=== PATIENT | male | born 1990 | race Caucasian/White ===

== ENCOUNTER 2018-08-11 10:27 | Emergency (ER) | payer OTHER ==
[~2018-08-11] VITALS: Ht 170.2 cm; Wt 54.4 kg
[~2018-08-11 10:27] MED LIST: ABILIFY 5 MG TAB5 M1 PO; BUSPIRONE HCL10 MG PO; IBUPROFEN 600600 M1 PO; NEURONTIN 300300 M1 PO; NICOTINE TRANSD14 M1 TD; NOHOMEMEDICATIONS; PREDNISONE50 MG PO; RISPERDAL0.5 MG PO; TRAMADOL 50 MG50 MG PO; TYLENOL325 MG PO
[2018-08-11 16:49] VITALS: BP 131/74
== END 2018-08-11 16:45 | disposition home or self-care (01) ==
LOC: ER 10:27
DX: G35 Multiple sclerosis (principal); F84.5 Asperger's syndrome; F31.9 Bipolar disorder, unspecified; F17.210 Nicotine dependence, cigarettes, uncomplicated

== ENCOUNTER → 2018-08-12 | Outpatient (CLI) | payer OTHER ==
[2018-08-12 14:46] VITALS: BP 112/41
--- NOTE | 2018-08-12 16:20 | NUR ---
IN FOR SOLUMEDROL INFUSION FOR MS EXACERBATION. HAVING SYMPTOMS OF NUMBNESS, PAIN AND DROOPING ON RIGHT SIDE OF FACE. PATIENT STATED HAVING TROUBLE TALKING. PATIENT'S MOTHER ROSALES IN ATTENDANCE. ADMISSION HISTORY AND ASSESSMENT COMPLETED. IV PLACED AND INFUSED SOLUMEDROL OVER 1 HOUR. TOLERATED WELL WITHOUT INCIDENT. PATIENT REQUESTED IV BE TAKEN OUT AND BE RESTARTED TOMORROW WHEN HE COMES BACK FOR HIS LAST INFUSION. DISMISSED IN STABLE CONDITION.
== END ==
LOC: OPONC 06:13
DX: G35 Multiple sclerosis (principal)
CPT/HCPCS: 95000

== ENCOUNTER → 2018-08-13 | Outpatient (CLI) | payer OTHER ==
[~2018-08-13] MED LIST changes: +MEDROLDOSEPACK PO
[2018-08-13 14:22] VITALS: BP 105/52
--- NOTE | 2018-08-13 15:30 | NUR ---
PT IN FOR FINAL DAY IV METHYPREDNISOLONE FOR MS EXACERBATION. PT DOES NOT FEEL BENEFIT YET FROM DRUG BUT MOM STATES THAT HIS SPEECH IS LESS SLURRED. DOES HAVE L SIDED FACIAL DROOP. DENIES VISION CHANGES, DIZZINESS, LOSS OF FUNCTION OR FEELING IN ANY EXTREMETIES. DENIES NOTING SIDE EFFECTS FROM HIS STEROIDS. TOLERATED TODAY'S INFUSION WITHOUT INCIDENT. MOM STATES PLAN IS TO F/U WITH HIS NEUROLOGIST IN EARLY AUGUST--APPT ALREADY SET. PT DISMISSED POST INFUSION IN STABLE CONDITION.
== END ==
LOC: OPONC 06:15
DX: G35 Multiple sclerosis (principal); D63.1 Anemia in chronic kidney disease; N18.9 Chronic kidney disease, unspecified
CPT/HCPCS: 95000

== ENCOUNTER 2018-08-18 10:56 | Emergency (ER) | payer OTHER ==
[~2018-08-18] VITALS: Ht 170.2 cm; Wt 56.2 kg
[~2018-08-18 10:56] MED LIST changes: -MEDROLDOSEPACK PO
[2018-08-18 11:46] LABS: ABSOLUTE NEUTROPHILS 7.6 thou/uL (1.4-8.2); BASOPHILS 0.2 % (0.0-2.0); EOSINOPHILS 2.1 % (0.0-3.0); HEMATOCRIT 41.5 % (42.0-52.0); HEMOGLOBIN 13.6 gm/dL (14.0-18.0); LYMPHOCYTES 14.2 % (24.0-44.0); MCH 29.5 pg (26.0-34.0); MCHC 32.6 g/dL (28.0-37.0); MCV 90.4 fL (80.0-100.0); MONOCYTES 5.6 % (1.0-8.0); PLATELET COUNT 320 thou/uL (150-400); POLYS 77.9 % (36.0-66.0); WBC 9.8 thou/uL (4.0-11.0)
[2018-08-18 11:58] LABS: CALCIUM 9.2 mg/dL (8.5-10.1); CREATININE 0.8 mg/dL (0.7-1.3); POTASSIUM 3.8 mmol/L (3.5-5.1)
[2018-08-18 12:05] LABS: ALBUMIN 3.8 g/dL (3.4-5.0); TOTAL BILIRUBIN 0.1 mg/dL (<0.1-1.0); TOTAL PROTEIN 6.8 g/dL (6.4-8.2)
[2018-08-18 12:29] VITALS: BP 111/54
[2018-08-18] MEDS ORDERED: MEDROLDOSEPACK PO (13:07)
== END 2018-08-18 13:50 | disposition home or self-care (01) ==
LOC: ER 10:56
PROVIDERS: Emergency Medicine
DX: G35 Multiple sclerosis (principal); F31.9 Bipolar disorder, unspecified; F17.210 Nicotine dependence, cigarettes, uncomplicated